=== PATIENT | female | born 1980 | race Caucasian/White ===

== ENCOUNTER 2020-02-03 18:23 | Observation (INO) | payer OTHER ==
[2020-02-03 18:54] LABS: BASOPHILS # (AUTO) 0.1 10^3/uL (0.0-0.1); BASOPHILS % (AUTO) 0.4 %; EOSINOPHILS # (AUTO) 0.2 10^3/uL (0.0-0.7); EOSINOPHILS % (AUTO) 1.9 %; LYMPHOCYTES # (AUTO) 3.6 10^3/uL (1.5-3.5); MEAN CORPUSCULAR HEMOGLOBIN 31.3 pg (27.0-31.0); MEAN CORPUSCULAR HGB CONC 33.9 g/dL (32.0-36.0); MEAN CORPUSCULAR VOLUME 92.5 fL (81.0-99.0); MEAN PLATELET VOLUME 9.6 fL (7.9-10.8); MONOCYTES # (AUTO) 0.8 10^3/uL (0.0-1.0); MONOCYTES % (AUTO) 5.9 %; NEUTROPHILS # (AUTO) 8.2 10^3/uL (1.5-6.6); NEUTROPHILS % (AUTO) 63.3 %; PLT - PLATELET COUNT 362 10^3/uL (130-450); RED BLOOD COUNT 4.79 10^6/uL (4.20-5.40); RED CELL DISTRIBUTION WIDTH 12.3 % (12.0-15.0)
[2020-02-03 18:59] LABS: BILIRUBIN,URINE NEGATIVE (NEGATIVE); GLUCOSE, URINE (UA) NEGATIVE (NEGATIVE); KETONES,URINE (UA) NEGATIVE (NEGATIVE); LEUKOCYTE ESTERASE, URINE NEGATIVE (NEGATIVE); NITRITE,URINE NEGATIVE (NEGATIVE); OCCULT BLOOD,URINE NEGATIVE (NEGATIVE); PH,URINE 6.5 PH (5.0-7.5); PROTEIN,URINE NEGATIVE (NEGATIVE); UROBILINOGEN,URINE 0.2 (NORMAL) E.U./dL (NORMAL)
[2020-02-03 19:02] LABS: CLARITY,URINE CLEAR (CLEAR); HCG UR QUAL NEGATIVE
[2020-02-03 19:10] LABS: ALBUMIN 4.3 g/dL (3.2-5.5); ALBUMIN/GLOBULIN RATIO 1.1 (1.0-2.2); BILIRUBIN,TOTAL 0.7 mg/dL (0.2-1.0); CALCIUM 9.7 mg/dL (8.5-10.3); CREATININE 0.7 mg/dL (0.4-1.0); TOTAL PROTEIN 8.1 g/dL (6.7-8.2)
--- NOTE | 2020-02-03 20:27 | ED Physician Documentation ---
History of Present Illness - Stated complaint Stated Complaint: BACK PX - Chief complaint Chief Complaint: Abd Pain - Additonal information Additional information: 39-year-old female presents the emergency department for 2 days of right upper quadrant abdominal pain that radiates to her back. She does report a history of gallstones but has never been seen by surgery. She denies that the pain is worse after eating but has been constant in nature. Some nausea but no vomiting. No fevers. Past surgical history includes appendectomy only. Meds none. Review of Systems Constitutional: reports: Reviewed and negative Eyes: reports: Reviewed and negative Ears: reports: Reviewed and negative Nose: reports: Reviewed and negative Throat: reports: Reviewed and negative Cardiac: reports: Reviewed and negative Respiratory: reports: Reviewed and negative GI: reports: Abdominal Pain, Nausea. 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 : None HEENT: None Psych: Other Musculoskeletal: None Derm: None Other Past Medical History: post depression - Past Surgical History Past Surgical History: Yes General: Appendectomy - Allergies Allergies/Adverse Reactions: Allergies Allergy/AdvReac Type Severity Reaction Status Date / Time No Known Drug Allergies Allergy Verified 02/03/20 18:33 - Social History Does the pt smoke?: No Smoking Status: Former smoker Does the pt drink ETOH?: Yes ETOH Use: Wine, Beer, Liquor Does the pt have substance abuse?: No - Immunizations Immunizations are current?: Yes - POLST Patient has POLST: No PD ED PE NORMAL - General General: Alert and oriented X 3, No acute distress - HEENT HEENT: PERRL, EOMI - Neck Neck: Supple, no meningeal sign, No adenopathy - Cardiac Cardiac: RRR, No murmur, No gallop - Respiratory Respiratory: No respiratory distress - Abdomen Abdomen: Normal bowel sounds, Soft. No: Non tender (Right upper quadrant tenderness without guarding or rebound. Negative Franks's. 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 Eye Opening: Spontaneous Motor: Obeys Commands Verbal: Oriented GCS Score: 15 Results - Vitals Vitals: Vital Signs - 24 hr 02/03/20 02/03/20 18:33 21:22 Temperature 36.8 C 36.8 C Heart Rate 103 H 98 Respiratory 18 16 Rate Blood Pressure 141/84 H 132/80 H O2 Saturation 96 98 Oxygen O2 Source Room air - Labs Labs: Laboratory Tests 02/03/20 02/03/20 02/03/20 18:46 18:49 18:49 WBC 13.0 H RBC 4.79 Hgb 15.0 Hct 44.3 MCV 92.5 MCH 31.3 H MCHC 33.9 RDW 12.3 Plt Count 362 MPV 9.6 Neut # (Auto) 8.2 H Lymph # (Auto) 3.6 H White # (Auto) 0.8 Eos # (Auto) 0.2 Baso # (Auto) 0.1 Absolute Nucleated RBC 0.00 Nucleated RBC % 0.0 Sodium 138 Potassium 3.9 Chloride 100 L Carbon Dioxide 28 Anion Gap 10.0 BUN 12 Creatinine 0.7 Estimated GFR (MDRD) 93 Glucose 95 Calcium 9.7 Total Bilirubin 0.7 AST 18 ALT 29 Alkaline Phosphatase 89 Total Protein 8.1 Albumin 4.3 Globulin 3.8 Albumin/Globulin Ratio 1.1 Lipase 22 Urine Color STRAW Urine Clarity CLEAR Urine pH 6.5 Ur Specific [place] 1.010 Urine Protein NEGATIVE Urine Glucose (UA) NEGATIVE Urine Ketones NEGATIVE Urine Occult Blood NEGATIVE Urine Nitrite NEGATIVE Urine Bilirubin NEGATIVE Urine Urobilinogen 0.2 (NORMAL) Ur Leukocyte Esterase NEGATIVE Ur Microscopic Review NOT INDICATED Urine Culture Comments NOT INDICATED Urine HCG, Qual NEGATIVE - Rads (name of study) abd us Radiology: Final report received (Cholelithiasis with marked wall thickening suggestive of cholecystitis. His areas of ringdown artifact from the gallbladder wall present suggestive of adenomyomatosis) PD MEDICAL DECISION MAKING - ED course Complexity details: reviewed results ED course: 39-year-old female presents to the emergency department with 2 days of right upper quadrant abdominal pain and nausea but no vomiting. She does have a known history of Staci lithiasis. On exam she is tender in the right upper quadrant but has a negative Franks's and non-peritoneal. Her white blood cell count is 13 but her LFTs and bilirubin are normal. Ultrasound suggests thickening of the gallbladder wall suggestive of acute cholecystitis. I have spoken with Dr. Navarrete surgery on-call and she recommends patient be admitted to same-day surgery for gallbladder removal likely tomorrow in the a.m. Departure - Departure Disposition: ED Transfer to [facility] Clinical Impression: Cholecystitis
--- NOTE | 2020-02-03 21:32 | Ultrasound Report ---
PROCEDURE: Abdomen Limited INDICATIONS: right upper abd pain TECHNIQUE: Real-time scanning was performed of the abdominal and retroperitoneal organs, with image documentatio n. COMPARISON: None. FINDINGS: Liver: Liver is normal in size and homogeneous in echotexture. Gallbladder: Bladder demonstrates areas of oval increased echogenicity. In addition, sludge is identi fied. Gallbladder wall measures 4.1 mm. In addition, areas of ringdown artifact are noted surrounding the gallbladder wall. Biliary ducts: Intrahepatic bile ducts are non-dilated. Extrahepatic bile duct caliber measures 5.1 mm. Normal is 6-7 mm or less in diameter, or 10 mm or less post-cholecystectomy. Pancreas: Visualized portions of the pancreas are sonographically normal. Kidneys: Kidneys are normal in size and echotexture. Right kidney measures 10.4 cm long. No hydron ephrosis or nephrolithiasis. No solid masses. Iliacs: Proximal common iliac arteries are normal in caliber at less than 2.5 cm. IVC: Intrahepatic inferior vena cava is patent. Miscellaneous: No free abdominal fluid. IMPRESSION: 1. Cholelithiasis with marked wall thickening suggestive of cholecystitis. 2. Areas of ringdown artifact from the gallbladder wall present suggestive of adenomyomatosis. Reviewed by: Meme Retana MD on 02/03/2020 9:31 PM PDT Approved by: Meme Retana MD on 02/03/2020 9:31 PM PDT Station ID: [id number]
[2020-02-03] MEDS ORDERED: SODIUM CHLORIDE FLUSH 0.9% 10 ML SYRINGE IVP PRN (21:51)
[2020-02-03] MEDS ORDERED: ONDANSETRON 4 MG/2 ML VIAL IVP PRN (21:55)
[2020-02-03] MEDS ORDERED: PANTOPRAZOLE 40 MG VIAL IVP STA (21:55)
[2020-02-03] MEDS ORDERED: HYDROmorphone 0.5 MG/0.5 ML SYRINGE IVP PRN (21:55)
[2020-02-03] MEDS ORDERED: LORazepam 2 MG/ML VIAL IVP PRN (21:57)
[2020-02-03] MEDS ORDERED: ACETAMINOPHEN 325 MG TABLET PO PRN (22:45)
[2020-02-03] MEDS: AMPICILLIN/SULBACTAM 3 GM in SODIUM CHLORIDE 0.9% MINIBAG 100 ML IV SCH (23:50)
[2020-02-04] MEDS: LACTATED RINGERS 1,000 ML IV SCH ×2 (01:12→12:09)
[2020-02-04] MEDS: SODIUM CHLORIDE FLUSH 0.9% 10 ML SYRINGE IVP SCH ×3 (01:12→17:10)
[2020-02-04] MEDS: AMPICILLIN/SULBACTAM 3 GM in SODIUM CHLORIDE 0.9% MINIBAG 100 ML IV SCH ×4 (03:32→21:46)
--- NOTE | 2020-02-04 10:59 | ANESTHESIA ---
Pre-Anesthesia VS, & Labs - Diagnosis Cholecystitis - Procedure laparoscopic cholecystectomy Vital Signs: Temp Pulse Resp BP Pulse Ox 36.8 C 95 18 121/81 H 96 02/04/20 07:48 02/04/20 07:48 02/04/20 07:48 02/04/20 07:48 02/04/20 07:48 Height 5 ft 8.5 in Weight (kg) 79.379 kg Body Mass Index 26.2 - NPO >8 hours - Is Patient ?: No - Lab Results Current Lab Results: Laboratory Tests 02/03/20 18:49: Sodium 138, Potassium 3.9, Chloride 100 L, Carbon Dioxide 28, Anion Gap 10.0, BUN 12, Creatinine 0.7, Estimated GFR (MDRD) 93, Glucose 95, Calcium 9.7, Total Bilirubin 0.7, AST 18, ALT 29, Alkaline Phosphatase 89, Total Protein 8.1, Albumin 4.3, Globulin 3.8, Albumin/Globulin Ratio 1.1, Lipase 22 02/03/20 18:49: WBC 13.0 H, RBC 4.79, Hgb 15.0, Hct 44.3, MCV 92.5, MCH 31.3 H, MCHC 33.9, RDW 12.3, Plt Count 362, MPV 9.6, Neut # (Auto) 8.2 H, Lymph # (Auto) 3.6 H, Scurry # (Auto) 0.8, Eos # (Auto) 0.2, Baso # (Auto) 0.1, Absolute Nucleated RBC 0.00, Nucleated RBC % 0.0 Lab results reviewed: Yes Fish Bones: 02/03/20 18:49 02/03/20 18:49 Home Medications and Allergies Active Medications Acetaminophen (Tylenol) 650 mg PO Q6H PRN PRN Reason: Pain or Fever > 38C (100.4F) Hydromorphone HCl (Dilaudid Inj Syringe) 0.5 mg IVP Q30M PRN PRN Reason: Breakthrough Pain Lactated Ringer's (Lr) 1,000 mls @ 100 mls/hr IV .Q10H [facility] Last Infusion: 02/04/20 10:40 Dose: 0 mls/hr Documented by: Ampicillin Sodium/Sulbactam (Sodium 3 gm/ Sodium Chloride) 100 mls @ 200 mls/hr IV Q6H [facility] Last Admin: 02/04/20 10:41 Dose: 200 mls/hr Documented by: Lorazepam (Ativan Inj (Vial)) 1 mg IVP Q6H PRN PRN Reason: Restlessness Ondansetron HCl (Zofran Inj) 4 mg IVP Q6H PRN PRN Reason: Nausea / Vomiting Sodium Chloride (Normal Saline Flush 0.9%) 10 ml IVP PRN PRN PRN Reason: NEEDED PER PROVIDER ORDERS Last Admin: 02/04/20 10:41 Dose: 10 ml Documented by: Sodium Chloride (Normal Saline Flush 0.9%) 10 ml IVP 0100,0900,1700 [facility] Last Admin: 02/04/20 09:30 Dose: Not Given Documented by: Allergies/Adverse Reactions: Allergies Allergy/AdvReac Type Severity Reaction Status Date / Time No Known Drug Allergies Allergy Verified 02/03/20 18:33 Anes History & Medical History - Anesthetic History Anesthesia Complications: reports: No previous complications Family history of Anesthesia Complications: Denies Family history of Malignant Hyperthermia: Denies - Medical History Cardiovascular: reports: None Pulmonary: reports: None Gastrointestinal: reports: GERD Urinary: reports: None Neuro: reports: None Musculoskeletal: reports: None Endocrine/Autoimmune: reports: None Blood Disorders: reports: None Skin: reports: None Smoking Status: Former smoker Other Past Medical History: post depression - Surgical History General: Appendectomy Exam General: Alert, Oriented x3, Cooperative, No acute distress Dental: WNL, Loose/Frag (left upper incisior) Mouth Openin Fingerbreadth Neck Mobility: Normal Mallampati classification: II Respiratory: Lungs clear Cardiovascular: Regular rate, Normal S1, Normal S2, No murmurs Plan Anesthesia Type: General Consent for Procedure(s) Verified and Reviewed: Yes Code Status: Attempt Resuscitation ASA classification: 1-Healthy patient Is this case an emergency?: No
[2020-02-04] MEDS ORDERED: LIDOCAINE 1%-EPI 1:100000 20 ML MDV ONE (11:04)
[2020-02-04] MEDS ORDERED: BUPIVACAINE 0.5% PF 30 ML VIAL ONE (11:05)
--- NOTE | 2020-02-04 13:41 | HISTORY & PHYSICAL EXAMINATION ---
HPI - Admitted From Admitted from: ED - History Obtained From Records Reviewed: RN notes reviewed History obtained from: Family Exam limitations: No limitations - History of Present Illness Pain/Problem Location Description: Right upper quadrant pain. Severity at the worst: reports: Severe Pain Quality: reports: Aching, Cramping, Throbbing Context-Pain started w/: reports: Rest Timing: reports: Gradual onset Duration: reports: Days: (2-3) Improved with: reports: Nothing Worsened by: reports: Nothing Associated symptoms: reports: Nausea HPI Comment/Other: Generally healthy 39 year old lady with a known history of gall stones. She presented to the ED with 2 - 3 days of right upper quadrant pain radiating to the back. No fever at home. Some mild nausea but no vomiting. Has a 10 month old daughter at home. Reports prior similar episodes but not quite as severe or long lasting as the present one. Denies itching or jaundice. 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 : positive: None HEENT: positive: None Musculoskeletal: positive: None Derm: positive: None MRSA Hx?: No Other Past Medical History: post depression - Past Surgical History General: positive: Appendectomy Social & Family Hx - Living Situation Living Arrangement: At home - Social History Does the pt smoke?: No Smoking Status: Former smoker Does the pt drink ETOH?: Yes ETOH Use: Wine, Beer, Liquor Does the pt have substance abuse?: No - POLST Patient has POLST: No Meds/Allgy - Allergies Allergies/Adverse Reactions: Allergies Allergy/AdvReac Type Severity Reaction Status Date / Time No Known Drug Allergies Allergy Verified 02/03/20 18:33 Review of Systems - Constitutional Constitutional: reports: Fatigue, Poor appetite. denies: Fever, Chills - Eyes Eyes: denies: Pain, Blurred vision - Ears, Nose & Throat Ears, Nose & Throat: denies: Hearing loss, Tinnitus, Vertigo - Cardiovascular Cariovascular: denies: Irregular heart rate, Palpitations, Chest pain - Respiratory Respiratory: denies: Cough, Sputum production - Gastrointestinal Gastrointestinal: reports: Abdominal pain, Nausea. denies: Vomiting - Musculoskeletal Musculoskeletal: denies: Muscle pain, Back pain - Integumentary Integumentary: denies: Rash, Pruritis, Lesions - Neurological Neurological: denies: Focal weakness, Headache - All Other Systems All Other Systems: reports: Reviewed and negative Exam - Vital Signs Reviewed Vital Signs: Yes Vital Signs: Vital Signs x48h Temp Pulse Resp BP Pulse Ox 02/04/20 07:48 36.8 C 95 18 121/81 H 96 - Physical Exam General Appearance: positive: No acute distress, Alert, Mild distress Eyes Bilateral: positive: PERRL, EOMI ENT: positive: ENT inspection nml, Pharynx nml, No signs of dehydration Neck: positive: Nml inspection, Thyroid nml, No JVD Respiratory: positive: Chest non-tender, No respiratory distress, Breath sounds nml. negative: Wheezes Cardiovascular: positive: Regular rate & rhythm, No murmur, No gallop Peripheral Pulses: positive: 2+ Abdomen: positive: Nml bowel sounds, Tenderness. negative: Rebound Back: negative: CVA tenderness (R), CVA tenderness (L) Skin: positive: Color nml, No rash Extremities: positive: Non-tender Neurologic/Psychiatric: positive: Oriented x3 Results - Lab Results Fish Bones: 02/03/20 18:49 02/03/20 18:49 Other Lab Results: Lab Results x24hrs 02/03/20 02/03/20 02/03/20 Range/Units 18:49 18:49 18:46 WBC 13.0 H (4.8-10.8) x10^3/uL RBC 4.79 (4.20-5.40) 10^6/uL Hgb 15.0 (12.0-16.0) g/dL Hct 44.3 (37.0-47.0) % MCV 92.5 (81.0-99.0) fL MCH 31.3 H (27.0-31.0) pg MCHC 33.9 (32.0-36.0) g/dL RDW 12.3 (12.0-15.0) % Plt Count 362 (130-450) 10^3/uL MPV 9.6 (7.9-10.8) fL Neut # (Auto) 8.2 H (1.5-6.6) 10^3/uL Lymph # (Auto) 3.6 H (1.5-3.5) 10^3/uL [place] # (Auto) 0.8 (0.0-1.0) 10^3/uL Eos # (Auto) 0.2 (0.0-0.7) 10^3/uL Baso # (Auto) 0.1 (0.0-0.1) 10^3/uL Absolute Nucleated RBC 0.00 x10^3/uL Nucleated RBC % 0.0 /100WBC Sodium 138 (135-145) mmol/L Potassium 3.9 (3.5-5.0) mmol/L Chloride 100 L (101-111) mmol/L Carbon Dioxide 28 (21-32) mmol/L Anion Gap 10.0 (6-13) BUN 12 (6-20) mg/dL Creatinine 0.7 (0.4-1.0) mg/dL Estimated GFR (MDRD) 93 (>89) Glucose 95 (70-100) mg/dL Calcium 9.7 (8.5-10.3) mg/dL Total Bilirubin 0.7 (0.2-1.0) mg/dL AST 18 (10-42) IU/L ALT 29 (10-60) IU/L Alkaline Phosphatase 89 (42-121) IU/L Total Protein 8.1 (6.7-8.2) g/dL Albumin 4.3 (3.2-5.5) g/dL Globulin 3.8 (2.1-4.2) g/dL Albumin/Globulin Ratio 1.1 (1.0-2.2) Lipase 22 (22-51) U/L Urine Color STRAW Urine Clarity CLEAR (CLEAR) Urine pH 6.5 (5.0-7.5) PH Ur Specific [place] 1.010 (1.002-1.030) Urine Protein NEGATIVE (NEGATIVE) mg/dL Urine Glucose (UA) NEGATIVE (NEGATIVE) mg/dL Urine Ketones NEGATIVE (NEGATIVE) mg/dL Urine Occult Blood NEGATIVE (NEGATIVE) Urine Nitrite NEGATIVE (NEGATIVE) Urine Bilirubin NEGATIVE (NEGATIVE) Urine Urobilinogen 0.2 (NORMAL) (NORMAL) E.U./dL Ur Leukocyte Esterase NEGATIVE (NEGATIVE) Ur Microscopic Review NOT INDICATED Urine Culture Comments NOT INDICATED Urine HCG, Qual NEGATIVE - Diagnostic Imaging Results Diagnostic Imaging Results Comments: Ultrasound consistent with cholecystitis and cholelithiasis Impression/Plan - Problem List Problem List: Cholelithiasis and acute cholecystitis in the setting of a healthy 39 year lady. I have recommended laparoscopic cholecystectomy. We have discussed the risks and benefits of the procedure and the patient has expressed a desire to complete it during this admission. Verbal and written consent were obtained.
[2020-02-05] MEDS: AMPICILLIN/SULBACTAM 3 GM in SODIUM CHLORIDE 0.9% MINIBAG 100 ML IV SCH (03:31)
[2020-02-05] MEDS: LACTATED RINGERS 1,000 ML IV SCH (04:12)
[2020-02-05] MEDS: SODIUM CHLORIDE FLUSH 0.9% 10 ML SYRINGE IVP SCH ×2 (04:12→07:52)
[2020-02-05] MEDS ORDERED: LIDOCAINE 1% 50 ML MDV SUBQ ONE (09:51)
[2020-02-05] MEDS ORDERED: HYDROmorphone 0.5 MG/0.5 ML SYRINGE IVP PRN (09:52)
[2020-02-05] MEDS ORDERED: ATROPINE ABBOJECT 1 MG/10 ML SYRINGE IVP PRN (09:52)
[2020-02-05] MEDS ORDERED: fentaNYL 100 MCG/2 ML VIAL IVP PRN (09:52)
[2020-02-05] MEDS ORDERED: MORPHINE 2 MG/ML CARPUJECT IVP PRN (09:52)
[2020-02-05] MEDS ORDERED: ONDANSETRON 4 MG/2 ML VIAL IVP PRN (09:52)
[2020-02-05] MEDS ORDERED: METOCLOPRAMIDE 10 MG/2 ML VIAL IVP PRN (09:52)
[2020-02-05] MEDS ORDERED: BUPIVACAINE 0.25%-EPI 1:200000 PF 10 ML VIAL SUBQ ONE (09:52)
[2020-02-05] MEDS ORDERED: NALOXONE 0.4 MG/ML VIAL IVP PRN (09:52)
[2020-02-05] MEDS ORDERED: ePHEDrine 50 MG/ML VIAL IVP PRN (09:52)
[2020-02-05] MEDS ORDERED: LACTATED RINGERS 1,000 ML IV SCH (10:00)
[2020-02-05] MEDS ORDERED: LACTATED RINGERS 1,000 ML IV ONE (10:45)
[2020-02-05] MEDS ORDERED: HYDROcod/ACETAM 5/325 MG TABLET PO PRN (10:47)
[2020-02-05] MEDS ORDERED: fentaNYL 100 MCG/2 ML VIAL ONE (11:06)
[2020-02-05 11:51] VITALS: BP 107/67
--- NOTE | 2020-02-05 14:56 | OPERATIVE REPORT ---
DATE OF SERVICE: 02/05/2020 Physician: Adan Connell MD PREOPERATIVE DIAGNOSIS: Chronic cholecystitis. POSTOPERATIVE DIAGNOSIS: Chronic cholecystitis. PROCEDURE PERFORMED: Laparoscopic cholecystectomy. 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 ANESTHESIA: General endotracheal anesthesia. Local anesthesia with Marcaine. COMPLICATIONS: None. ESTIMATED BLOOD LOSS: None. DRAINS: None. SPECIMENS: Gallbladder. INDICATIONS FOR PROCEDURE: The patient is a healthy 39-year-old who has had biliary colic on and off for 10 years. Two days ago, it became acutely worse. She was admitted to the hospital with severe abdominal pain. She presents for surgery. Risks discussed and alternatives discussed. All question s answered and consent obtained. By ultrasound, she has large gallstones. She has no signs or sympt oms of choledocholithiasis. DESCRIPTION OF PROCEDURE: The patient was properly identified and brought to the operating room and placed in supine position. She voided prior to surgery. General endotracheal anesthesia was induced . Sequential compression devices were placed. She was prepped and draped in a sterile fashion and g iven preoperative antibiotics. Local anesthetic was given to surgery areas. An infraumbilical incis ion was made. Dissection proceeded down to the fascia. The fascia was incised, lifted upwards and a bdomen entered with the Veress needle. CO2 was insufflated to a pressure of 15. An 11-mm trocar was placed, followed by a 30-degree scope. There was no evidence of injury from Veress needle or trocar placement. Under direct vision, two 5-mm trocars were placed in the right upper quadrant and a 10-m m trocar was placed in the epigastrium. Body of the gallbladder was retracted anterior. Lateral att achments were partially taken down further, mobilizing the gallbladder away from the duodenum. Adher ent omentum was carefully peeled down from the lower third of the gallbladder, exposing Deepti's po uch area. The Deepti's pouch or infundibulum was retracted right, lateral, and caudad. The omentu m was further peeled away from the bottom of the gallbladder, exposing the cystic artery and the cyst ic duct. The cystic artery and the cystic duct were both densely scarred to one another. They were carefully peeled apart and a bare cystic plate area and window was carefully created with minimal use of cautery. The cystic duct was inspected right lateral and left lateral. It was normal to small i n diameter. The cystic duct and cystic artery were both clipped at the gallbladder and additionally clipped x2 or 3, slightly proximal and sharply divided. The gallbladder was mobilized off from the b ed of the liver without spillage of bile or stone material. The gallbladder was placed in an EndoCat ch bag and brought out through the epigastrium. There were no apparent complications. Hemostasis wa s assured. Clips were secure. CO2 was evacuated and trocars were removed under direct vision. Fasc ia at the larger trocar sites was closed with running 0 Vicryl suture. Subcutaneous tissue was irrig ated and skin closed with buried interrupted 4-0 Monocryl. Dressings were applied. She tolerated th e procedure very well. TD: 02/05/2020 11:50
--- NOTE | 2020-02-10 09:47 | DISCHARGE SUMMARY ---
"Discharge Summary Admit Date: 02/03/20 Discharge Date: 02/05/20 Discharging Provider: sean pandya md Code Status: Attempt Resuscitation Condition at Discharge: Good - DIAGNOSES Admission Diagnoses: cholecystitis Discharge Diagnoses with Status of Each Condition: chronic cholecystitis. improved after antibiotics, pain management, and surgery - HPI History of Present Illness: Admitted 02/03/2020 with severe epigastric pain. Work up and exam and history consistent with cholecystitis - CONSULTS | PROCEDURES Procedures: lap elizabeth 02/05/2020. Well tolerated - HOSPITAL COURSE Hospital Course: Discharged 02/05/2020 after surgery in good condition. Pain well controlled. Normal post op exam abdomen, chest - ALLERGIES Allergies/Adverse Reactions: Allergies Allergy/AdvReac Type Severity Reaction Status Date / Time No Known Drug Allergies Allergy Verified 02/03/20 18:33 - MEDICATIONS Home Medications: Ambulatory Orders Medication Instructions Recorded Confirmed Hydrocodone/Acetaminophen 1 each PO Q4HR PRN #30 tablet 02/05/20 [Hydrocodone-Acetamin 5-325 mg] Ondansetron Odt [Zofran Odt] 4 mg PO Q6H PRN #15 tablet 02/05/20 - PHYSICAL EXAM AT DISCHARGE General Appearance: positive: No acute distress, Alert Eyes Bilateral: positive: Normal inspection, PERRL, EOMI, No scleral icterus ENT: positive: No signs of dehydration Neck: positive: No JVD Respiratory: positive: No respiratory distress Cardiovascular: positive: Regular rate & rhythm Abdomen: positive: No distention Extremities: positive: No pedal edema Neurologic/Psychiatric: positive: Oriented x3 - LABS Result Diagrams: 02/03/20 18:49 02/03/20 18:49 - QUALITY (Female Hip Fx Only) Was patient sent home on osteoporosis medication?: No - FOLLOW UP Follow Up: surgery office"
== END 2020-02-05 12:56 | disposition home or self-care (01) ==
LOC: ED 18:23 → SDS 22:42 → MS3 23:55 → SDS 02-05 11:26 → MS3 02-05 11:27
PROVIDERS: ADMIT Surgery; ATTEND Surgery
PROC: 0FT44ZZ Resection of Gallbladder, Percutaneous Endoscopic Approach (ICD-10-PCS; principal; 2020-02-05 12:00)
DX: K80.10 Calculus of gallbladder with chronic cholecystitis without obstruction (principal); K21.9 Gastro-esophageal reflux disease without esophagitis; Z87.891 Personal history of nicotine dependence
CPT/HCPCS: 36415; 47562; 76705; 80053; 81003; 81025; 83690; 85025; 96365; 96366; 96375; 99285; A9270; G0378; J7120; 81001; 87086

== ENCOUNTER 2020-02-05 19:29 | Emergency (ER) | payer OTHER ==
--- NOTE | 2020-02-05 21:13 | ED Physician Documentation ---
History of Present Illness - Stated complaint Stated Complaint: POST OP PX - Chief complaint Chief Complaint: Abd Pain - History obtained from History obtained from: Patient - Additonal information Additional information: Patient is a 39-year-old female who is postop day 0 from a laparoscopic cholecystectomy. She went home today had some chicken soup and then had an episode of severe abdominal pain that has since resolved without fevers or vomiting she does not had a bowel movement yet or passed flatus. Denies vomiting denies any jaundice-like symptoms. Review of Systems Constitutional: reports: Reviewed and negative Eyes: reports: Reviewed and negative Ears: reports: Reviewed and negative Nose: reports: Reviewed and negative Throat: reports: Reviewed and negative Cardiac: reports: Reviewed and negative Respiratory: reports: Reviewed and negative GI: reports: Abdominal Pain : reports: Reviewed and negative Skin: reports: Reviewed and negative Musculoskeletal: reports: Reviewed and negative Neurologic: reports: Reviewed and negative Psychiatric: reports: Reviewed and negative Endocrine: reports: Reviewed and negative Immunocompromised: reports: Reviewed and negative PD PAST MEDICAL HISTORY - Past Medical History Cardiovascular: None Respiratory: None Neuro: None Endocrine/Autoimmune: None GI: GERD 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 HEENT: None Psych: Other Musculoskeletal: None Derm: None - Past Surgical History Past Surgical History: Yes General: Appendectomy - Present Medications Home Medications: Ambulatory Orders Medication Instructions Recorded Confirmed Hydrocodone/Acetaminophen 1 each PO Q4HR PRN #30 tablet 02/05/20 [Hydrocodone-Acetamin 5-325 mg] Ondansetron Odt [Zofran Odt] 4 mg PO Q6H PRN #15 tablet 02/05/20 - Allergies Allergies/Adverse Reactions: Allergies Allergy/AdvReac Type Severity Reaction Status Date / Time No Known Drug Allergies Allergy Verified 02/03/20 18:33 - Social History Does the pt smoke?: No Smoking Status: Never smoker Does the pt drink ETOH?: Yes Does the pt have substance abuse?: No - Immunizations Immunizations are current?: Yes - POLST Patient has POLST: No PD ED PE NORMAL - Vitals Vital signs reviewed: Yes - General General: Alert and oriented X 3, No acute distress, Well developed/nourished - HEENT HEENT: Atraumatic, PERRL, Moist mucous membranes, Dentition benign - Neck Neck: Supple, no meningeal sign - Cardiac Cardiac: RRR, No murmur, Strong equal pulses - Respiratory Respiratory: No respiratory distress, Clear bilaterally - Abdomen Abdomen: Normal bowel sounds, Soft, Non tender, Non distended, Other (10 incisions have dressing in place with no signs of infection normoactive bowel sounds no guarding no rebound or hepatosplenomegaly no CVA tenderness no midline abdominal pulsatile mass) - Derm Derm: Warm and dry - Extremities Extremities: No deformity - Neuro Neuro: Alert and oriented X 3 - Psych Psych: Normal mood, Normal affect Results - Vitals Vitals: Vital Signs - 24 hr 02/05/20 19:32 Temperature 37.3 C Heart Rate 91 Respiratory 18 Rate Blood Pressure 115/79 O2 Saturation 97 Oxygen O2 Source Room air PD MEDICAL DECISION MAKING - ED course ED course: Female postop day 0 from cholecystectomy ate some chicken soup tonight and then had severe pain that lasted for few minutes and then has resolved I did recommend we check blood work to evaluate for white blood cell count as well as her bilirubin levels and lipase. Patient reports she is asymptomatic now and is pain-free had a lengthy discussion with her and her about postoperative pain control recommend sips and chips for the next 24 hours before she tries to advance her diet. - Consults Consults: Discussed case with (dr. shirley, general surgery. keep dressing in place. f/u tomorrow for recheck for worsening pain or fever.) Departure - Departure Disposition: 01 Home, Self Care Clinical Impression: Post-op pain Condition: Stable Instructions: ED Post Op Pain Follow-Up: Adan Connell MD [Provider Admit Priv/Credential] - Tomorrow Comments: return to the emergency department with fevers, severe pain or any concerns.
[2020-02-05 21:20] VITALS: BP 121/68
== END 2020-02-05 21:35 | disposition home or self-care (01) ==
LOC: ED 19:29
DX: G89.18 Other acute postprocedural pain (principal)
CPT/HCPCS: 80053; 83690; 85025; 99282; 99283

== ENCOUNTER 2020-08-31 07:11 | Emergency (ER) | payer OTHER ==
[2020-08-31 07:46] LABS: BASOPHILS % (AUTO) 0.3 %; EOSINOPHILS # (AUTO) 0.2 10^3/uL (0.0-0.7); EOSINOPHILS % (AUTO) 2.6 %; HCT - HEMATOCRIT 43.1 % (37.0-47.0); HGB - HEMOGLOBIN 14.5 g/dL (12.0-16.0); LYMPHOCYTES # (AUTO) 2.5 10^3/uL (1.5-3.5); LYMPHOCYTES % (AUTO) 27.2 %; MEAN CORPUSCULAR HEMOGLOBIN 30.8 pg (27.0-31.0); MEAN CORPUSCULAR HGB CONC 33.6 g/dL (32.0-36.0); MEAN CORPUSCULAR VOLUME 91.5 fL (81.0-99.0); MEAN PLATELET VOLUME 9.6 fL (7.9-10.8); MONOCYTES # (AUTO) 0.5 10^3/uL (0.0-1.0); MONOCYTES % (AUTO) 5.6 %; NEUTROPHILS # (AUTO) 5.8 10^3/uL (1.5-6.6); PLT - PLATELET COUNT 346 10^3/uL (130-450); RED BLOOD COUNT 4.71 10^6/uL (4.20-5.40); RED CELL DISTRIBUTION WIDTH 12.3 % (12.0-15.0)
[2020-08-31 07:59] LABS: ALBUMIN 4.1 g/dL (3.2-5.5); ALBUMIN/GLOBULIN RATIO 1.3 (1.0-2.2); BILIRUBIN,TOTAL 0.7 mg/dL (0.2-1.0); CREATININE 0.7 mg/dL (0.4-1.0); POTASSIUM 4.1 mmol/L (3.5-5.0); TOTAL PROTEIN 7.3 g/dL (6.7-8.2)
[2020-08-31 09:21] LABS: BILIRUBIN,URINE NEGATIVE (NEGATIVE); GLUCOSE, URINE (UA) NEGATIVE (NEGATIVE); KETONES,URINE (UA) NEGATIVE (NEGATIVE); LEUKOCYTE ESTERASE, URINE NEGATIVE (NEGATIVE); NITRITE,URINE NEGATIVE (NEGATIVE); OCCULT BLOOD,URINE NEGATIVE (NEGATIVE); PROTEIN,URINE NEGATIVE (NEGATIVE); UROBILINOGEN,URINE 0.2 (NORMAL) E.U./dL (NORMAL)
[2020-08-31 09:23] LABS: CLARITY,URINE CLEAR (CLEAR); HCG UR QUAL NEGATIVE
[2020-08-31] MEDS ORDERED: FAMOTIDINE 20 MG TABLET PO STA (09:42)
--- NOTE | 2020-08-31 09:46 | ED Physician Documentation ---
PD HPI ABD PAIN - Stated complaint Stated Complaint: STOMACHE PX - Chief complaint Chief Complaint: Abd Pain - History obtained from History obtained from: Patient - Additional information Additional information: Patient comes emergency department chief complaint of upper abdominal pain that started around 530 this morning and awoke her from sleep. Patient states that she noticed a deep, spasming pain that seem to go through to her back. She is not sure exactly how long the worst of it lasted, but she is feeling much better now. Patient denies any nausea or vomiting. No fevers or chills. She has a history of cholelithiasis, but had her gallbladder removed last year. Patient denies any changes in her bowel movements. No dysuria. She has an IUD and is not known to be . Patient states she does have a history of reflux and that ranitidine has been helpful in the past. No other complaints at this time. Review of Systems Ten Systems: 10 systems reviewed and negative Constitutional: reports: Reviewed and negative Eyes: reports: Reviewed and negative Ears: reports: Reviewed and negative Nose: reports: Reviewed and negative Throat: reports: Reviewed and negative Cardiac: reports: Reviewed and negative Respiratory: reports: Reviewed and negative GI: reports: Abdominal Pain. 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 : None HEENT: None Psych: Other Musculoskeletal: None Derm: None - Past Surgical History Past Surgical History: Yes General: Appendectomy - Present Medications Home Medications: Ambulatory Orders Medication Instructions Recorded Confirmed No Known Home Medications 08/31/20 08/31/20 - Allergies Allergies/Adverse Reactions: Allergies Allergy/AdvReac Type Severity Reaction Status Date / Time No Known Drug Allergies Allergy Verified 08/31/20 07:18 - Social History Does the pt smoke?: No Smoking Status: Never smoker Does the pt drink ETOH?: Yes Does the pt have substance abuse?: No - Immunizations Immunizations are current?: Yes - POLST Patient has POLST: No PD ED PE NORMAL - Vitals Vital signs reviewed: Yes - General General: Alert and oriented X 3, No acute distress, Well developed/nourished - HEENT HEENT: Atraumatic, PERRL, EOMI, Moist mucous membranes - Neck Neck: Supple, no meningeal sign - Cardiac Cardiac: RRR, No murmur, Strong equal pulses - Respiratory Respiratory: No respiratory distress, Clear bilaterally - Abdomen Abdomen: Soft, Non distended, Other (Moderate epigastric tenderness, no rebound or guarding) - Back Back: No CVA TTP - Derm Derm: Normal color, Warm and dry, No rash - Extremities Extremities: No deformity, No edema, No calf tenderness / cord - Neuro Neuro: Alert and oriented X 3, microbiology soil scientist 2-12 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, Normal speech - Psych Psych: Normal mood, Normal affect Results - Vitals Vitals: Vital Signs - 24 hr 08/31/20 07:19 Temperature 36.5 C Heart Rate 97 Respiratory 18 Rate Blood Pressure 122/84 H O2 Saturation 94 Oxygen O2 Source Room air - Labs Labs: Laboratory Tests 08/31/20 08/31/20 08/31/20 07:35 07:40 08:40 WBC 9.0 RBC 4.71 Hgb 14.5 Hct 43.1 MCV 91.5 MCH 30.8 MCHC 33.6 RDW 12.3 Plt Count 346 MPV 9.6 Neut # (Auto) 5.8 Lymph # (Auto) 2.5 [place] # (Auto) 0.5 Eos # (Auto) 0.2 Baso # (Auto) 0.0 Absolute Nucleated RBC 0.00 Nucleated RBC % 0.0 Sodium 137 Potassium 4.1 Chloride 102 Carbon Dioxide 28 Anion Gap 7.0 BUN 14 Creatinine 0.7 Estimated GFR (MDRD) 93 Glucose 102 H Calcium 9.0 Total Bilirubin 0.7 AST 19 ALT 32 Alkaline Phosphatase 76 Total Protein 7.3 Albumin 4.1 Globulin 3.2 Albumin/Globulin Ratio 1.3 Lipase 23 Urine Color STRAW Urine Clarity CLEAR Urine pH 7.0 Ur Specific [place] <=1.005 Urine Protein NEGATIVE Urine Glucose (UA) NEGATIVE Urine Ketones NEGATIVE Urine Occult Blood NEGATIVE Urine Nitrite NEGATIVE Urine Bilirubin NEGATIVE Urine Urobilinogen 0.2 (NORMAL) Ur Leukocyte Esterase NEGATIVE Ur Microscopic Review NOT INDICATED Urine Culture Comments NOT INDICATED Urine HCG, Qual NEGATIVE PD MEDICAL DECISION MAKING - ED course Complexity details: reviewed results, re-evaluated patient, considered differential, d/w patient ED course: The patient had already had a cholecystectomy. Her laboratory studies, including lipase and LFTs, were unremarkable. I discussed with the patient the most likely, she has an esophageal irritation with spasm. The patient is somewhat concerned about whether she could be having a coronary event, but I feel this is highly unlikely. The patient is not a smoker and has no other risk factors and her family history is negative for young MIs. Additionally, the patient has not had any chest pain or shortness of breath and does have a tender abdomen. Her symptoms have also improved. I discussed with the patient that she is very low risk for coronary artery disease at this time, and that I do not suspect this at this time. We have discussed home management of the symptoms. She would like to be put back on ranitidine and I have written her prescription for this. We have discussed the usual indications for return. Departure - Departure Disposition: 01 Home, Self Care Clinical Impression: Esophagitis, Esophageal spasm Condition: Stable Instructions: ED Spasm Esophageal Comments: All of your labs look very good. There is no indication of an emergent condition at this time. You are extremely low risk for coronary artery disease, the condition that leads to heart attack, and the probability of heart attack at this point in time is very low. Please follow-up with your primary care physician as needed. You may take the ranitidine as needed, as well.
[2020-08-31 09:49] VITALS: BP 98/63
--- OUTSIDE RECORDS SUMMARY | 2020-09-01 03:19 | EXTERNAL MEDICAL SUMMARY RPT | Continuity of Care Document ---
:1980 Demographics Phone Unavailable Preferred Language Unknown Marital Status Unknown Voodoo Affiliation Unknown Race Unknown Ethnic Group Unknown Author Organization [facility] Address [address] [place] [address] Phone Social History date description facility [phone]
--- OUTSIDE RECORDS SUMMARY | 2020-09-01 03:19 | EXTERNAL MEDICAL SUMMARY RPT | Continuity of Care Document ---
:1980 Demographics Phone Unavailable Preferred Language Unknown Marital Status Unknown Zoroastrianism Affiliation Unknown Race Unknown Ethnic Group Unknown Author Organization [facility] Address [address] [place] [address] Phone Social History date description facility [phone]
== END 2020-08-31 10:03 | disposition home or self-care (01) ==
LOC: ED 07:11
DX: K20.90 Esophagitis, unspecified without bleeding (principal); K22.4 Dyskinesia of esophagus; Z90.49 Acquired absence of other specified parts of digestive tract; Z97.5 Presence of (intrauterine) contraceptive device
CPT/HCPCS: 36415; 80053; 81003; 81025; 83690; 85025; 99283; A9270; 81001; 87086

== ENCOUNTER 2021-02-03 16:28 | Emergency (ER) | payer OTHER ==
--- NOTE | 2021-02-03 17:43 | ED Physician Documentation ---
PD HPI DYSPNEA - Stated complaint Stated Complaint: SOA - Chief complaint Chief Complaint: Resp - History obtained from History obtained from: Patient - Additional information Additional information: 40-year-old fairly healthy woman with reflux presents with 2 days of intermittent shortness of breath that she thinks is either reflux or panic. She is also slightly worried about Covid but has no fever, cough, body aches. She did recently travel from [facility] returning 2 weeks ago. Denies pedal edema or calf pain. She is not on control. No possibility of . Review of Systems Constitutional: denies: Fever, Chills Cardiac: reports: Chest pain / pressure (Chronic, from GERD). denies: Palpitations, Pedal edema, Calf pain Respiratory: reports: Dyspnea. 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 : None HEENT: None Psych: Other Musculoskeletal: None Derm: None - Past Surgical History Past Surgical History: Yes General: Appendectomy - Present Medications Home Medications: Ambulatory Orders Medication Instructions Recorded Confirmed No Known Home Medications 08/31/20 02/03/21 - Allergies Allergies/Adverse Reactions: Allergies Allergy/AdvReac Type Severity Reaction Status Date / Time No Known Drug Allergies Allergy Verified 02/03/21 16:49 - Social History Does the pt smoke?: No Smoking Status: Never smoker Does the pt drink ETOH?: Yes Does the pt have substance abuse?: No - Immunizations Immunizations are current?: Yes - POLST Patient has POLST: No PD ED PE NORMAL - Vitals Vital signs reviewed: Yes - General General: Alert and oriented X 3, No acute distress - HEENT HEENT: PERRL, EOMI - Neck Neck: Supple, no meningeal sign, No bony TTP - Cardiac Cardiac: RRR, No murmur - Respiratory Respiratory: No respiratory distress, Clear bilaterally - Abdomen Abdomen: Non tender - Extremities Extremities: No edema, No calf tenderness / cord - Neuro Neuro: Alert and oriented X 3, Normal speech Results - Vitals Vitals: Vital Signs - 24 hr 02/03/21 17:44 Temperature 36.6 C Heart Rate 101 H Respiratory 19 Rate Blood Pressure 138/87 H O2 Saturation 100 Oxygen O2 Source Room air PD MEDICAL DECISION MAKING - ED course ED course: 40-year-old woman presents with shortness of breath that by history is most likely to be anxiety. Given the recent travel I recommended D-dimer and chest x-ray. After consideration she decided she wanted no testing. Departure - Departure Disposition: 01 Home, Self Care Clinical Impression: Dyspnea Qualifiers: Dyspnea type: shortness of breath Qualified Code(s): R06.02 - Shortness of breath; R06.00 - Dyspnea, unspecified; R06.01 - Orthopnea Condition: Good Record reviewed to determine appropriate education?: Yes Instructions: ED Dyspnea Shortness of Breath Comments: Return if you worsen or change your mind about wanting specific testing to rule out blood clots in the lungs.
[2021-02-03 17:45] VITALS: BP 138/87
== END 2021-02-03 18:17 | disposition home or self-care (01) ==
LOC: ED 16:28
DX: R06.02 Shortness of breath (principal); R06.00 Dyspnea, unspecified; R06.01 Orthopnea
CPT/HCPCS: 99281; 99283

== ENCOUNTER 2021-04-06 14:52 | Outpatient (CLI) | payer OTHER ==
[2021-04-06] MEDS ORDERED: GADOBUTROL 7.5 MMOL/7.5 ML VIAL ONE (14:53)
[2021-04-06] MEDS ORDERED: GADOBUTROL 7.5 MMOL/7.5 ML VIAL IVP ONE (15:21)
--- NOTE | 2021-04-06 17:44 | MRI Report ---
PROCEDURE: Brain W/WO INDICATIONS: OTALGIA CONTRAST: IV CONTRAST: Gadavist ml: 7.3 TECHNIQUE: Noncontrast axial T1 spin echo, axial T2 fast spin echo, sagittal and axial FLAIR, coronal T2 fast sp in echo, axial gradient echo, axial diffusion and ADC through the brain. After the administration of contrast, axial and coronal T1 spin echo with fat saturation through the brain. COMPARISON: None. FINDINGS: Image quality: Excellent. CSF spaces: Basal cisterns are patent. No extra-axial fluid collections. Ventricles are normal in size and shape. Brain: No midline shift. No intracranial bleeds or masses. No abnormal intracranial enhancement. There is cerebral volume loss for age. There is periventricular white matter chronic small vessel is chemic change. The brainstem appears normal. Diffusion-weighted images demonstrate no acute ischemi c insults. No chronic ischemic insults. Normal intravascular flow voids are present. Scrutiny is given to the middle ear cavities and external auditory canals. No significant abnormaliti es can be seen within these regions. Skull and face: Calvarial marrow is normal in signal. Orbits appear normal. Sinuses: Sinuses and mastoids appear clear. IMPRESSION: No imaging explanation is found for the patient's presenting symptoms. If it would be helpful for clinical management decision making in this patient with a presenting hist ory of left otalgia, please consider a dedicated temporal bone CT for further evaluation. Reviewed by: Vin Taylor MD on 04/06/2021 4:43 PM [facility] Approved by: Vin Taylor MD on 04/06/2021 4:43 PM [facility] Station ID: [id number]
== END 2021-04-06 14:53 | disposition home or self-care (01) ==
LOC: DI 14:52
PROVIDERS: ATTEND Student in an Organized Health Care Education/Training Program
DX: H92.02 Otalgia, left ear (principal)
CPT/HCPCS: 70553; A9585

== ENCOUNTER 2021-09-02 01:34 | Outpatient (CLI) | payer OTHER | END 2021-09-02 01:35 | disposition EMS.NT | LOC: EMS 01:34 | DX: R10.13 Epigastric pain (principal) ==

== ENCOUNTER 2021-09-12 06:44 | Emergency (ER) | payer OTHER ==
[2021-09-12] MEDS ORDERED: LIDOCAINE VISCOUS 2% 15 ML UDC MM STA (07:11)
[2021-09-12] MEDS ORDERED: MAG HYDROX/AL HYDROX/SIMETH 30 ML UDC PO STA (07:11)
[2021-09-12 07:18] LABS: BASOPHILS % (AUTO) 0.3 %; EOSINOPHILS # (AUTO) 0.1 10^3/uL (0.0-0.7); EOSINOPHILS % (AUTO) 0.4 %; HCT - HEMATOCRIT 45.2 % (37.0-47.0); HGB - HEMOGLOBIN 15.3 g/dL (12.0-16.0); LYMPHOCYTES # (AUTO) 1.5 10^3/uL (1.5-3.5); LYMPHOCYTES % (AUTO) 13.6 %; MEAN CORPUSCULAR HEMOGLOBIN 29.6 pg (27.0-31.0); MEAN CORPUSCULAR HGB CONC 33.8 g/dL (32.0-36.0); MEAN CORPUSCULAR VOLUME 87.4 fL (81.0-99.0); MEAN PLATELET VOLUME 9.6 fL (7.9-10.8); MONOCYTES # (AUTO) 0.8 10^3/uL (0.0-1.0); MONOCYTES % (AUTO) 6.8 %; NEUTROPHILS # (AUTO) 8.9 10^3/uL (1.5-6.6); NEUTROPHILS % (AUTO) 78.5 %; PLT - PLATELET COUNT 332 10^3/uL (130-450); RED BLOOD COUNT 5.17 10^6/uL (4.20-5.40); RED CELL DISTRIBUTION WIDTH 11.9 % (12.0-15.0); WHITE BLOOD COUNT 11.4 x10^3/uL (4.8-10.8)
[2021-09-12] MEDS ORDERED: ONDANSETRON 4 MG/2 ML VIAL IVP STA (07:26)
--- NOTE | 2021-09-12 07:26 | ED Physician Documentation ---
PD HPI ABD PAIN - Stated complaint Stated Complaint: ABD PX - Chief complaint Chief Complaint: Cardiac - History obtained from History obtained from: Patient - Additional information Additional information: The patient comes to the emergency department with chief complaint of upper abdominal pain that started this morning. Patient states she has been having episodic pain like this for some weeks now [place] She has been on both Pepcid and pantoprazole, and now has a referral to GI for an endoscopy, which is supposed to happen next week. The patient states that otherwise, she has a history of a cholecystectomy a couple of years ago and intermittently takes Claritin for allergies. She had Covid 2 weeks ago and was mildly ill with this but is feeling better now. The patient denies any other complaints. The patient had nausea earlier and vomited bile-like fluid. No changes in her bowel habits. No urinary symptoms. No other complaints at this time. Review of Systems Ten Systems: 10 systems reviewed and negative Constitutional: reports: Reviewed and negative Eyes: reports: Reviewed and negative Ears: reports: Reviewed and negative Nose: reports: Reviewed and negative Throat: reports: Reviewed and negative Cardiac: reports: Reviewed and negative Respiratory: reports: Reviewed and negative GI: reports: Abdominal Pain, Nausea, Vomiting : reports: Reviewed and negative Skin: reports: Reviewed and negative Musculoskeletal: reports: Reviewed and negative Neurologic: reports: Reviewed and negative Psychiatric: reports: Reviewed and negative Endocrine: reports: Reviewed and negative Immunocompromised: reports: Reviewed and negative PD PAST MEDICAL HISTORY - Past Medical History Past Medical History: Yes Cardiovascular: None Respiratory: None Neuro: None Endocrine/Autoimmune: None GI: GERD 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 HEENT: None Psych: Other Musculoskeletal: None Derm: None - Past Surgical History Past Surgical History: Yes General: Appendectomy - Present Medications Home Medications: Ambulatory Orders Medication Instructions Recorded Confirmed HYDROcod/ACETAM 5/325 [[place] 5/325] 1 - 2 tablet PO Q6H PRN #14 tablet 09/12/21 Ondansetron Odt [Zofran] 4 mg TL Q6H PRN #10 tablet 09/12/21 Pantoprazole Sodium 40 mg PO DAILY 09/12/21 09/12/21 - Allergies Allergies/Adverse Reactions: Allergies Allergy/AdvReac Type Severity Reaction Status Date / Time No Known Drug Allergies Allergy Verified 09/12/21 06:56 - Social History Does the pt smoke?: No Smoking Status: Never smoker Does the pt drink ETOH?: Yes Does the pt have substance abuse?: No - Immunizations Immunizations are current?: Yes - POLST Patient has POLST: No PD ED PE NORMAL - Vitals Vital signs reviewed: Yes - General General: Alert and oriented X 3, No acute distress, Well developed/nourished - HEENT HEENT: Atraumatic, PERRL, EOMI, Moist mucous membranes - Neck Neck: Supple, no meningeal sign - Cardiac Cardiac: RRR, No murmur, Strong equal pulses - Respiratory Respiratory: No respiratory distress, Clear bilaterally - Abdomen Abdomen: Soft, Non distended, Other (Mild epigastric tenderness, no rebound or guarding) - Derm Derm: Normal color, Warm and dry, No rash - Extremities Extremities: No deformity, No edema, No calf tenderness / cord - Neuro Neuro: Alert and oriented X 3, timing adjuster 2-12 intact, Normal speech, Other (Grossly intact) - Psych Psych: Normal mood, Normal affect Results - Vitals Vitals: Vital Signs - 24 hr 09/12/21 09/12/21 09/12/21 06:45 07:13 09:42 Temperature 36.5 C Heart Rate 109 H 99 72 Respiratory 20 14 12 Rate Blood Pressure 129/75 121/91 H 111/76 O2 Saturation 99 96 99 Oxygen O2 Source Room air - Labs Labs: Laboratory Tests 09/12/21 09/12/21 09/12/21 07:00 07:00 07:00 WBC 11.4 H RBC 5.17 Hgb 15.3 Hct 45.2 MCV 87.4 MCH 29.6 MCHC 33.8 RDW 11.9 L Plt Count 332 MPV 9.6 Neut # (Auto) 8.9 H Lymph # (Auto) 1.5 [place] # (Auto) 0.8 Eos # (Auto) 0.1 Baso # (Auto) 0.0 Absolute Nucleated RBC 0.00 Nucleated RBC % 0.0 Sodium 132 L Potassium 3.4 L Chloride 99 L Carbon Dioxide 24 Anion Gap 9.0 BUN 9 Creatinine 0.6 Estimated GFR (MDRD) 111 Glucose 101 H Calcium 8.6 Total Bilirubin 0.6 AST 77 H ALT 95 H Alkaline Phosphatase 88 Troponin I High Sens < 2.3 L Total Protein 7.6 Albumin 4.0 Globulin 3.6 Albumin/Globulin Ratio 1.1 Lipase 31 - Rads (name of study) CT abdomen pelvis Radiology: Final report received, EMP read indepedently, See rad report (Negative) PD MEDICAL DECISION MAKING - ED course Complexity details: reviewed results, re-evaluated patient, considered differential, d/w patient ED course: Patient was treated symptomatically with a GI cocktail, Zofran, and half a milligram of Dilaudid in the emergency department. She was worked up with laboratory studies and EKG, which were unremarkable. The patient insisted that she thought that something more must be wrong because of her ongoing pain. Despite my discussion with her that the test that she really needs is the endoscopy, which she is already scheduled for, the patient was concerned and felt that this was different, so ultimately, we ended up doing a CT scan of the abdomen and pelvis. This was negative. We did discuss symptomatic management at home and I prescribed her a short course of analgesia. We have discussed the usual indications for return. Departure - Departure Disposition: Home, Self Care Clinical Impression: Abdominal pain Qualifiers: Abdominal location: upper abdomen, unspecified Qualified Code(s): R10.10 - Upper abdominal pain, unspecified Condition: Stable Instructions: ED Abdominal Pain Female Non-Specific Abdominal Pain Prescriptions: HYDROcod/ACETAM 5/325 [[place] 5/325] 1 - 2 tablet PO Q6H PRN #14 tablet PRN Reason: Pain Ondansetron Odt [Zofran] 4 mg TL Q6H PRN #10 tablet PRN Reason: Nausea / Vomiting Comments: Your labs and CT scan look good. There is no evidence of problems with your pancreas or liver, or any of your other organs. Unfortunately, inflammation of the lining of the stomach and intestines does not show up well on CT scan, nor does ulcer. As such, endoscopy is the best test to diagnose a problem of this nature. You were scheduled for this test and should definitely plan to have this done. You may continue your medications, as we have discussed. A medication for pain for nausea have also been prescribed and have been electronically transmitted to the [facility] pharmacy, as per your request. Discharge Date/Time: 09/12/21 09:49
[2021-09-12] MEDS ORDERED: HYDROmorphone 0.5 MG/0.5 ML SYRINGE IVP STA (07:27)
[2021-09-12 07:29] LABS: ALBUMIN/GLOBULIN RATIO 1.1 (1.0-2.2); BILIRUBIN,TOTAL 0.6 mg/dL (0.2-1.0); CALCIUM 8.6 mg/dL (8.5-10.3); CREATININE 0.6 mg/dL (0.4-1.0); POTASSIUM 3.4 mmol/L (3.5-5.0); TOTAL PROTEIN 7.6 g/dL (6.7-8.2)
[2021-09-12] MEDS ORDERED: PANTOPRAZOLE 40 MG VIAL IVP STA (08:12)
[2021-09-12] MEDS ORDERED: HYDROcod/ACETAM 5/325 MG TABLET PO STA (08:13)
[2021-09-12] MEDS ORDERED: IOVERSOL 320 100 ML VIAL IVP ONE ×2 (08:27→15:11)
--- NOTE | 2021-09-12 09:10 | CT Report ---
PROCEDURE: Abdomen/Pelvis W INDICATIONS: R sided abd pain CONTRAST: IV CONTRAST: Optiray 320 ml: 100 PO CONTRAST: *NO PO CONTRAST TECHNIQUE: After the administration of IV contrast, 5 mm thick sections acquired from the diaphragms to the symp hysis. 5 mm thick coronal and sagittal reformats were acquired. For radiation dose reduction, the f ollowing was used: automated exposure control, adjustment of mA and/or kV according to patient size. COMPARISON: Correlation is made with abdominal ultrasound, 02/03/2020 FINDINGS: Image quality: Excellent. ABDOMEN: Lung bases: Lung bases are clear. Heart size is normal. Solid organs: Liver and spleen are normal in size and enhancement. Gallbladder has been removed. B iliary system is non dilated for a postcholecystectomy patient. Pancreas enhances normally. No adre nal nodules. Kidneys demonstrate normal size and enhancement, without hydronephrosis. Peritoneum and bowel: Bowel loops demonstrate normal wall thickness and caliber. No free fluid or a ir. No appendix can be seen, either normal or abnormal. No focal right lower quadrant inflammatory c hanges are seen. Nodes and vessels: No retroperitoneal or mesenteric adenopathy by size criteria. Aorta and inferior vena cava are normal in size. Miscellaneous: No ventral hernias. PELVIS: Genitourinary: Bladder wall thickness is normal. The uterus demonstrates an unremarkable appearance for age. No adnexal masses are seen. Miscellaneous: No inguinal hernias or adenopathy. Bones: No suspicious bony lesions. No vertebral body compression fractures. IMPRESSION: No imaging explanation is found for the patient's presenting symptoms. No appendix can be seen, either normal or abnormal. No focal right lower quadrant inflammatory change s are seen. Cholecystectomy, without shad biliary ductal dilatation. No hydronephrosis is seen. Reviewed by: Vin Taylor MD on 09/12/2021 8:08 AM [facility] Approved by: Vin Taylor MD on 09/12/2021 8:08 AM [facility] Station ID: [id number]
[2021-09-12 09:43] VITALS: BP 111/76
== END 2021-09-12 09:49 | disposition home or self-care (01) ==
LOC: ED 06:44
DX: R10.10 Upper abdominal pain, unspecified (principal)
CPT/HCPCS: 36415; 74177; 80053; 83690; 84484; 85025; 93005; 96374; 96375; 99284; A9270; J1170; Q9967